=== PATIENT | female | born 1955 | race Caucasian/White ===

== ENCOUNTER → 2020-06-24 09:39 | Outpatient (BNVA) | payer OTHER, SELFPAY | PROVIDERS: Visit Provider Internal Medicine Gastroenterology | DX: Z76.89 Persons encountering health services in other specified circumstances (principal) ==

== ENCOUNTER 2020-06-24 16:50 | Outpatient (REF) | payer OTHER, SELFPAY ==
[2020-06-25 13:46] LABS: H Pylori Breath Test NOT DETECTED (NOT DETECTED)
== END 2020-06-24 16:51 | disposition home or self-care (01) ==
LOC: HO.LNP 16:50
PROVIDERS: Visit Provider Internal Medicine Gastroenterology
DX: Z11.0 Encounter for screening for intestinal infectious diseases (principal)
CPT/HCPCS: 83013

== ENCOUNTER 2020-08-19 01:44 | Emergency (ER) | payer OTHER, SELFPAY ==
[2020-08-19 01:58] VITALS: BP 141/66; PULSE 72; RESP 20; TEMP 37.1; O2SAT 95; BMI 44.9
--- NOTE | 2020-08-19 03:57 | XR_ITS ---
EXAMINATION: XR CHEST CLINICAL INFORMATION: Cough COMPARISON: 05/16/2020 TECHNIQUE: Frontal view of the chest was obtained. FINDINGS: Lung volumes are symmetric. There are mild patchy opacities along the periphery of the mid to lower lungs, right greater than left, which appear new from prior. No evidence of pneumothorax, pleural effusion, or overt pulmonary edema. Cardiac silhouette appears near the upper limits of normal in size. No acute osseous findings are seen. Degenerative changes are noted in the spine. XR/XR chest 1V IMPRESSION: Mild patchy peripheral opacities in the mid to lower lungs, right greater than left, concerning for developing consolidations in the proper clinical setting.
--- NOTE | 2020-08-19 03:59 | ED_ITS ---
HPI - General Adult General Chief complaint: Back Pain/Injury Stated complaint: UPPER BACK PAIN Time Seen by Provider: 08/19/20 03:57 Source: patient Mode of arrival: ambulatory Limitations: no limitations History of Present Illness HPI narrative: This is a 65-year-old female who presents with 2 days of dry cough without associated fevers, chills and she states that since the onset of the cough she has experienced some right posterior back discomfort. Patient states that she has a positive COVID-19 exposure via her daughter. But denies any sore throat chest pain/palpitations, shortness of breath, but she states that she has been having some mild nausea but denies any abdominal pain or diarrhea. Related Data Previous Rx's Medication Instructions Recorded doxycycline monohydrate 100 mg PO BID 7 Days #14 cap 08/19/20 Allergies Allergy/AdvReac Type Severity Reaction Status Date / Time No Known Allergies Allergy Verified 08/19/20 01:58 [No Known Allergies*] Review of Systems Review of Systems: Pertinent positives and negatives as stated in HPI 10 point review of systems is otherwise negative. PMFSH Past Medical History Source: nursing notes reviewed Medical History Asthma Hypothyroid Multiple sclerosis Social History Social History Advance Directives: No Advance Directives Information Provided: No Physical Exam Vital Signs: Vital Signs: Last Vital Signs Temp 98.7 F 08/19/20 01:58 Pulse 72 08/19/20 01:58 Resp 20 08/19/20 01:58 BP 141/66 H 08/19/20 01:58 Pulse Ox 95 08/19/20 01:58 Body Mass Index 44.9 VITAL SIGNS: Reviewed. GENERAL: Well developed, well nourished, in no acute distress. HEAD: Normocephalic/atraumatic, EYES: PERRLA, EOMI intact without pain, no nystagmus/pallor/icterus noted EARS: Ext canals without abnormality, TMs non-bulging and non-erythematous NOSE: Nares patent bilateral OROPHARYNX: no oral lesions noted, posterior pharynx clear and non-erythematous without noted tonsillar enlargement/erythema/exudates NECK: Supple, no adenopathy LUNGS: Normal breath sounds. No adventitious sounds or accessory muscle use. SpO2<95> CARDIOVASCULAR: Regular rate and rhythm without noted murmurs, no JVD or lower extremity edema. ABDOMEN: Soft, non-tender, non-distended with bowel sounds. No rigidity. No guarding. No palpable masses or hernias noted MUSCULOSKELETAL: No tenderness, deformities, or effusions noted on gross inspection. BACK: There is a noted muscle spasm in the right upper back just medial to the scapula EXTREMITIES: No cyanosis, clubbing or edema. SKIN: Inspection of the skin reveals no rashes, ulcerations, jaundice, pallor, or petechiae. NEUROLOGIC: Alert and oriented x 4. Strength and sensation to light touch were grossly intact x 4. Course Course Course Narrative: This is a 65-year-old female with history and clinical presentation consistent with likely musculoskeletal discomfort secondary to coughing, but due to patient's exposure to COVID-19 will test for that and obtain a chest x-ray and provide combination analgesics. She is not noted to be either hypoxic, tachypneic or febrile. On review of the chest x-ray it is being read as bilateral opacities right greater than left with concern for developing consolidation. Patient is neither febrile or tachypneic here and will be discharged on doxycycline as well as patient awaiting the results of her COVID-19 testing. She was informed of all results at the bedside and was discharged in stable condition. Discharge Plan Discharge Clinical Impression: Exposure to COVID-19 virus, Pneumonia Patient Disposition: Home, Self-Care Instructions: Pneumonia (ED), COVID-19 (Coronavirus Disease 2019) (ED) Additional Instructions: 1. reanude todos los medicamentos caseros seg?n lo prescrito. 2. Le lopez hecho pam prueba de COVID-19 bladimir esta visita y debe ponerse en cuarentena de acuerdo con las pautas del estado de [place] hasta que lo llamen con los resultados de la prueba de COVID-19. 3. adem?s, hubo cierta preocupaci?n por pam posible neumon?a y le lopez dado de maggy con los antibi?ticos adecuados. 4. debe hacer un seguimiento con scott proveedor de atenci?n primaria despu?s de que le hayan llamado los resultados de la prueba de COVID-19. Prescriptions: New doxycycline monohydrate 100 mg capsule 100 mg PO BID 7 Days Qty: 14 RF: 0 Referrals: Physician,None [Primary Care Provider] - 2 days Print Language: Rw[place]an
[2020-08-19] MEDS: Acetaminophen 325 MG TABLET 975 MG PO (05:06)
[2020-08-19] MEDS: Ketorolac Tromethamine 15 MG/ML VIAL IM (05:06)
[2020-08-19] MEDS: Lidocaine 4 % Patch ADH..PATCH 1 PATCH TRANSDERMA (05:06)
== END 2020-08-19 06:00 | disposition home or self-care (01) ==
PROVIDERS: Emergency Provider Student in an Organized Health Care Education/Training Program
DX: J18.9 Pneumonia, unspecified organism (principal); R05 Cough; Z20.828 Contact with and (suspected) exposure to other viral communicable diseases
CPT/HCPCS: 71045; 96372; 99283; 99284; J1885; U0003

== ENCOUNTER 2020-12-01 11:06 | Outpatient (REF) | payer OTHER, SELFPAY ==
[2020-12-01 13:25] LABS: MANUAL DIFF FLAG NO
[2020-12-01 13:35] LABS: Basophils Percent Auto 0.6 % (0-2); Eosinophils Absolute Auto 0.4 X10*3/uL (0.0-0.4); Eosinophils Percent Auto 6.3 % (0-4); Hematocrit 43.5 % (37-47); Hemoglobin 13.8 g/dl (12.0-16.0); Imm Gran Abs Auto 0.02 X10*3/uL (0.00-0.03); Imm Gran Pct Auto 0.3 % (0.0-0.4); Lymphocytes Absolute Auto 1.6 X10*3/uL (1.2-4.9); Lymphocytes Percent Auto 22.2 % (20-40); Mean Corpuscular HGB Conc 31.7 g/dl (31.0-35.0); Mean Corpuscular Hemoglobin 29.4 pg (27.0-33.0); Mean Corpuscular Volume 92.6 fL (80-98); Mean Platelet Volume 12.8 fL (9.4-12.3); Monocytes Absolute Auto 0.5 X10*3/uL (0.1-1.2); Monocytes Percent Auto 7.6 % (2-11); Neutrophils Absolute Auto 4.4 X10*3/uL (2.0-8.3); Platelet Count 247 X10*3/uL (160-400); Red Cell Distribution Width 13.5 % (11.0-16.0)
[2020-12-01 14:26] LABS: Alanine Aminotransferase 14 U/L (0-31); Albumin Level 4.5 g/dL (3.5-5.0); Alkaline Phosphatase 61 U/L (39-117); Anion Gap 12 (12-20); Aspartate Amino Transferase 18 U/L (5-31); Bilirubin Total 0.7 mg/dL (0.0-1.0); Blood Urea Nitrogen 15 mg/dL (9-16); Calcium 9.5 mg/dL (8.4-10.2); Carbon Dioxide 30 mmol/L (22-29); Chloride 105 mmol/L (96-108); Estimated Glomerular Filt Rate > 60; Glucose Random 95 mg/dL (60-115); Potassium 4.6 mmol/L (3.3-5.1); Sodium 142 mmol/L (135-145); Total Protein 7.5 g/dL (6.5-8.0)
[2020-12-01 14:27] LABS: Thyroid Stimulating Hormone 2.13 uIU/mL (0.32-4.0)
[2020-12-02 15:22] LABS: H Pylori Breath Test NOT DETECTED (NOT DETECTED)
== END 2020-12-01 11:07 | disposition home or self-care (01) ==
LOC: HO.LAB 11:06
PROVIDERS: Visit Provider Physician Assistant
DX: R10.13 Epigastric pain (principal); K21.9 Gastro-esophageal reflux disease without esophagitis; K59.09 Other constipation; R74.01 Elevation of levels of liver transaminase levels; R10.11 Right upper quadrant pain; Z86.16 Personal history of COVID-19
CPT/HCPCS: 36415; 80053; 83013; 84443; 85025; 99212

== ENCOUNTER 2021-01-18 12:50 | Outpatient (REF) | payer OTHER, SELFPAY | END 2021-01-18 12:51 | disposition home or self-care (01) | LOC: HO.LAB 12:50 | PROVIDERS: Visit Provider Internal Medicine | DX: Z20.822 Contact with and (suspected) exposure to COVID-19 (principal) | CPT/HCPCS: C9803; U0003; U0005 ==

== ENCOUNTER 2025-07-28 12:56 | Emergency (ER) | payer OTHER, SELFPAY ==
--- NOTE | ~2025-07-28 | CT_ITS ---
CLINICAL HISTORY: RUQ and epigastric abd pain CT of the abdomen and pelvis utilizing intravenous contrast. No comparison. Findings: The liver is unremarkable. Cholecystectomy. No hydronephrosis. The spleen and pancreas are unremarkable. No abdominal aortic aneurysm. There is diffuse colonic wall thickening consistent with colitis. There is no bowel obstruction. There is mild indeterminate bladder wall thickening. Hysterectomy. There are mild nonspecific interstitial opacities in the lower lungs that could represent mild fibrosis. 6 mm nodule left lower lung. Impression: Colonic wall thickening consistent with colitis. Indeterminate 6 mm nodule left lower lung recommend comparison to previous or follow-up. Mild bladder wall thickening likely incomplete distention although mild cystitis is a less likely possibility. This document has been electronically signed by: Jason Prado MD on 07/28/2025 17:49:34
[2025-07-28 13:23] VITALS: BP 159/71; PULSE 53; RESP 16; TEMP 36.4; O2SAT 98; BMI 43.2
--- NOTE | 2025-07-28 13:23 | ED_ITS ---
HPI - General Adult General Chief complaint: Abdominal Pain Stated complaint: Stomach Pain Time Seen by Provider: 07/28/25 16:02 History of Present Illness ED Provider: Dr. Steen HPI narrative: 70 y/o F patient; PMH chronic abdominal pain, GERD, chronic constipation, s/p cholecystectomy; presents from home reporting approx 2 weeks of right sided upper abdominal pain. A few episodes of non-bloody diarrhea. Otherwise denies: fever or chills, chest pain, SOB, cough/congestion. Related Data Previous Rx's ?Medication ?Instructions ?Recorded docusate sodium 100 mg capsule 200 mg (2 x 100 mg) PO BEDTIME #60 12/01/20 (Colace) caps omeprazole 20 mg capsule,delayed 20 mg PO DAILY #30 ca ps 12/01/20 release polyethylene glycol 3350 17 gram 17 g PO DAILY #30 ea 12/01/20 oral powder packet (Miralax) famotidine 40 mg tablet 40 mg PO BEDTIME 30 days #30 tabs 07/28/25 Allergies Allergy/AdvReac Type Severity Reaction Status Date / Time No Known Allergies (No Known Allergy Verified 07/28/25 13:25 Allergies*) Review of Systems 2 Review of Systems: Yes all other systems are reviewed and are negative PMFSH Past Medical History Attestation statement: The following information was validated with the patient. Source: old records reviewed Medical History Chronic constipation Hypothyroid Asthma Multiple sclerosis Surgical History H/O: hysterectomy History of cholecystectomy Social History Social History Household Members: Spouse and Children Alcohol intake: current Alcohol intake frequency: holidays/special occasions only Alcohol type: hard liquor Smoked in Last 30 Days: No Use of substances other than those prescribed or required for medical reasons: No Advance Directives: No Advance Directives Information Provided: No Do you have a plan to hurt others: No Plan Current occupational status: disabled Physical Exam ED Vital Signs: Vital Signs - 24 hr 07/28/25 13:23 07/28/25 16:55 Temperature 97.5 F 97.8 F Pulse Rate 53 58 Respiratory Rate 16 16 Blood Pressure 159/71 H 147/88 H Pulse Oximetry 98 98 Oxygen Delivery Method Room Air Room Air BMI result Body Mass Index 43.2 Patient is afebrile and hemodynamically stable. Const General: cooperative and no acute distress Orientation/consciousness: patient oriented x3 HENMT Head: Yes normal to inspection and Yes atraumatic Eyes General: appearance normal, both eyes and all related structures Pupils: Equal, round and reactive pupils present EOM: EOMs intact bilaterally Neck Neck: Yes normal visual inspection, Yes supple and No tender Chest Chest palpation & inspection: normal inspection of the chest and normal palpation of entire chest wall Resp Effort & Inspection: normal respiratory effort, able to speak in complete sentences and no cough Auscultation: clear to auscultation bilaterally Cardio Rate: regular rate Rhythm: regular rhythm Peripheral pulses: Peripheral pulses 2+ throughout GI Inspection: Yes normal to inspection, No Abdominal wall edema and No distended Palpation (GI): Soft to palpation, not firm, nontender, no guarding and not rigid Auscultation: normal bowel sounds Back/Spine/Pelvis Back: No back tenderness Neuro General: patient oriented x3 Cranial nerves: Yes Equal, round and reactive pupils present Course Course Course Narrative: Rapid medical examination performed in triage by Scarlet Patel PA-C: Patient is a 70 year old assigned female at presenting to the emergency department with abdominal pain. Detailed physical exam and review of systems are deferred to the industrial engineering. Labs ordered. Patient placed back in the waiting room pending room availability and results. Reevaluation(s) Reevaluation #1: Patient is afebrile and hemodynamically stable. Reviewed triage ordered labs. No significant leukocytosis. No significant anemia. Lipase is negative. Transaminitis is negative. Will obtain CT Abdomen/Pelvis. Will provide protonix and GI cocktail. CT Abdomen/Pelvis is unremarkable for acute abnormalities. Will provide GI out-patient follow up. Plan: Discharge to home Condition: Stable Rx famotidine sent to pharmacy Medications Administered Discontinued Medications Generic Name Dose Route Start Last Admin Trade Name Freq PRN Reason Stop Dose Admin Al Hydroxide/Mg Hydroxide 30 ml 07/28/25 16:34 07/28/25 17:40 Magnesium Hydrox/Alum Hydrox 30 Ml Oral.Susp PO 07/28/25 16:35 30 ml ONCE ONE Administration Belladonna Alkaloids/Phenobarbital 10 ml 07/28/25 16:34 07/28/25 17:40 Phenobarb/Hyoscy/Atropine/Scop 10 Ml Elixir PO 07/28/25 16:35 10 ml ONCE ONE Administration Iohexol 100 ml 07/28/25 17:20 07/28/25 17:20 Iohexol 350 Mg/Ml 100 Ml Infus..Btl IV 07/28/25 17:21 85 ml ONCE ONE Administration Pantoprazole Sodium 40 mg 07/28/25 16:34 07/28/25 17:40 Pantoprazole Sodium 40 Mg/10 Ml Vial IVPUSH 07/28/25 16:35 40 mg ONCE ONE Administration Medical Decision Making Lab Data 07/28/25 13:34 07/28/25 13:34 Labs: Lab Results 07/28/25 07/28/25 Range/Units 13:34 17:02 WBC 6.0 (4.8-10.8) X10*3/uL RBC 4.64 (4.20-5.50) X10*6/uL Hgb 13.5 (12.0-16.0) g/dl Hct 41.5 (37.0-47.0) % MCV 89.4 (80.0-98.0) fL MCH 29.1 (27.0-33.0) pg MCHC 32.5 (31.0-35.0) g/dl RDW 13.3 (11.0-16.0) % Plt Count 214 (160-400) X10*3/uL MPV 12.6 H (9.4-12.3) fL Immature Gran % (Auto) 0.3 (0.0-0.4) % Neut % (Auto) 58.1 (45-73) % Lymph % (Auto) 20.8 (20-40) % Mitchell % (Auto) 7.8 (2-11) % Eos % (Auto) 12.3 H (0-4) % Baso % (Auto) 0.7 (0-2) % Lymph # (Auto) 1.3 (1.2-4.9) X10*3/uL Mitchell # (Auto) 0.5 (0.1-1.2) X10*3/uL Eos # (Auto) 0.7 H (0.0-0.4) X10*3/uL Baso # (Auto) 0.0 (0.0-0.2) X10*3/uL Abs Immat Gran (auto) 0.02 (0.00-0.03) X10*3/uL Absolute Neuts (auto) 3.5 (2.0-8.3) x10*3/uL Absolute Nucleated RBC 0.000 (0.0-0.012) X10*3/uL Nucleated RBC % (auto) 0.0 (0.0-0.2) /100WBC Sodium 143 (135-145) mmol/L Potassium 4.3 (3.3-5.1) mmol/L Chloride 111 H (96-108) mmol/L Carbon Dioxide 26 (22-29) mmol/L Anion Gap 10 L (12-20) BUN 9 (9-16) mg/dL Creatinine 0.84 (0.5-1.4) mg/dL Estim Creat Clear Calc 81.2 Estimated GFR > 60 Random Glucose 94 (60-115) mg/dL Calcium 9.5 (8.4-10.2) mg/dL Magnesium 2.3 (1.6-2.6) mg/dL Total Bilirubin 0.6 (0.0-1.0) mg/dL AST 21 (5-31) U/L ALT 15 (0-31) U/L Alkaline Phosphatase 76 (39-117) U/L Total Protein 7.4 (6.5-8.0) g/dL Albumin 4.4 (3.5-5.0) g/dL Lipase 14 (8-78) U/L Urine Color Yellow Urine Appearance Clear Urine pH 6.5 (5.0-9.0) Ur Specific Carman 1.015 (1.005-1.025) Urine Protein Negative (Neg-Trace) mg/dL Urine Glucose (UA) Negative (Negative) mg/dL Urine Ketones Trace (Negative) mg/dL Urine Blood Negative (Negative) Urine Nitrite Negative (Negative) Ur Leukocyte Esterase Trace H (Negative) Urine RBC 0-2 (0-2) /HPF Urine WBC 0-5 (0-5) /HPF Ur Squamous Epith Cells 0-2 (0-2) /HPF Urine Bacteria None Seen (None Seen) Hyaline Casts 0-2 (0-2) /LPF Radiology Impression Discussion of test interpretation with radiology: I have reviewed the radiologist's reading. Radiologist Impression: CLINICAL HISTORY: RUQ and epigastric abd pain CT of the abdomen and pelvis utilizing intravenous contrast. No comparison. Findings: The liver is unremarkable. Cholecystectomy. No hydronephrosis. The spleen and pancreas are unremarkable. No abdominal aortic aneurysm. There is diffuse colonic wall thickening consistent with colitis. There is no bowel obstruction. There is mild indeterminate bladder wall thickening. Hysterectomy. There are mild nonspecific interstitial opacities in the lower lungs that could represent mild fibrosis. 6 mm nodule left lower lung. Impression: Colonic wall thickening consistent with colitis. Indeterminate 6 mm nodule left lower lung recommend comparison to previous or follow-up. Mild bladder wall thickening likely incomplete distention although mild cystitis is a less likely possibility. This document has been electronically signed by: Jason Prado MD on 07/28/2025 17:49:34 Discharge Plan Discharge Clinical Impression: Abdominal pain Patient Disposition: Home, Self-Care Instructions: GERD (Gastroesophageal Reflux Disease) (DC), Abdominal Pain (ED) Prescriptions: New famotidine 40 mg tablet 40 mg PO BEDTIME 30 Days Qty: 30 0RF No Action docusate sodium [Colace] 100 mg capsule 200 mg PO BEDTIME Qty: 60 5RF polyethylene glycol 3350 [Miralax] 17 gram powder in packet 17 g PO DAILY Qty: 30 5RF omeprazole 20 mg capsule,delayed release(DR/EC) 20 mg PO DAILY Qty: 30 5RF Referrals: Leif Donis MD [Physician, Gastroenterology] Referral Note: Please call to make an appointment with GI. Print Language: [place] Islander
[2025-07-28 13:39] LABS: MANUAL DIFF FLAG NO
[2025-07-28 13:52] LABS: Hematocrit 41.5 % (37.0-47.0); Hemoglobin 13.5 g/dl (12.0-16.0); Imm Gran Abs Auto 0.02 X10*3/uL (0.00-0.03); Imm Gran Pct Auto 0.3 % (0.0-0.4); Lymphocytes Absolute Auto 1.3 X10*3/uL (1.2-4.9); Mean Corpuscular HGB Conc 32.5 g/dl (31.0-35.0); Mean Corpuscular Hemoglobin 29.1 pg (27.0-33.0); Mean Corpuscular Volume 89.4 fL (80.0-98.0); NRBC Abs Auto 0.000 X10*3/uL (0.0-0.012); NRBC Pct Auto 0.0 /100WBC (0.0-0.2); Platelet Count 214 X10*3/uL (160-400); Red Blood Count 4.64 X10*6/uL (4.20-5.50); White Blood Count 6.0 X10*3/uL (4.8-10.8)
[2025-07-28 14:00] LABS: Alanine Aminotransferase 15 U/L (0-31); Albumin Level 4.4 g/dL (3.5-5.0); Alkaline Phosphatase 76 U/L (39-117); Anion Gap 10 (12-20); Aspartate Amino Transferase 21 U/L (5-31); Blood Urea Nitrogen 9 mg/dL (9-16); Calcium 9.5 mg/dL (8.4-10.2); Carbon Dioxide 26 mmol/L (22-29); Chloride 111 mmol/L (96-108); Creatinine Clr Calc Pharmacy 81.2; Estimated Glomerular Filt Rate > 60; Magnesium 2.3 mg/dL (1.6-2.6); Potassium 4.3 mmol/L (3.3-5.1); Sodium 143 mmol/L (135-145); Total Protein 7.4 g/dL (6.5-8.0)
[2025-07-28 16:30] LABS: Lipase 14 U/L (8-78)
[2025-07-28 16:55] VITALS: BP 147/88; PULSE 58; RESP 16; TEMP 36.6; O2SAT 98
[2025-07-28 17:15] LABS: Appearance Urine Clear; Glucose Urine UA Negative (Negative); PH 6.5 (5.0-9.0); Specific Gravity - Urine 1.015 (1.005-1.025); UMIC TRIGGER UACC YES
[2025-07-28] MEDS: iohexoL 350 MG/ML 100 ML INFUS..BTL IV (17:20)
[2025-07-28] MEDS: PHENobarb/Hyoscy/Atropine/Scop 10 ML ELIXIR PO (17:40)
[2025-07-28] MEDS: Magnesium Hydrox/Alum Hydrox 30 ML ORAL.SUSP PO (17:40)
--- OUTSIDE RECORDS SUMMARY | 2025-07-28 17:53 | XMS_ITS | Encounter Summary ---
Author Organization [facility] Address [address] [place] [address] Phone Care Team Providers Care Windows Security Analyst Name Role Phone Unknown, Unknown Primary Care Provider Denise Varela MD Unavailable Encounter Details Date Type Department Care Team (Late st Contact Info) Description 08/19/2023 Procedure Pass [facility] [address], [place] [address] [facility], [address] [place] [address] Social History Tobacco Use Types Packs/Day Years Used Date Smoking Tobacco: Never Smokeless Tobacco: Never Alcohol Use Standard Drinks/Week Comments Never 0 (1 standard drink = 0.6 oz pur e alcohol) Education Answer Date Recorded Are you interested in more education? Not on shanae e 08/19/2023 Are you concerned about learning? Not on file 08/19/2023 No 08/19/2023 No 08/19/2023 Digital Access Answer Date Recorded No 08/19/2023 No 08/19/2023 Reliable internet access at home? Not on file 08/19/2023 Device with a working camera? Not on file Comments Unknown Sex and Gender Information Value Date Recorded Sex Assigned at Not on file Legal Sex Female 6:21 PM EST Gender Identity Not on file Sexual Orientation Not on file documented as of this encounter Plan of Treatment Not on file documented as of this encounter Visit Diagnoses Not on filedocumented in this encounter Care Teams Windows Security Analyst Relationship Specialty Start Date End Date Unknown, Unknown, PCP - General 08/18/23 Denise Torres MD [address] [place] [id number] 08/18/23 documented as of this encounter Additional Source Comments The information contained in this document represents components of the legal health record. It is not the complete legal health record.[facility]
--- OUTSIDE RECORDS SUMMARY | 2025-07-28 17:53 | XMS_ITS | Clinical Summary ---
Author Organization [facility] Address [address] [place] [id number] Phone Care Team Providers Care Major Assembler Name Role Phone Unknown, Unknown Primary Care Provider Denise Varela MD Unavailable Allergies No known active allergies Medications No known medications Social History Tobacco Use Types Packs/Day Years Used Date Smoking Tobacco: Never Smokeless Tobacco: Never Tobacco Cessation:Counseling Given: Not Answered Alcohol Use Standard Drinks/Week Comments Never 0 [...] on file Sexual Orientation Not on file Last Filed Vital Signs Vital Sign Reading Time Taken Comments Blood Pressure 141/99 08/19/2023 7:38 PM EST Pulse 59 08/19/2023 7:38 PM EST Temperature 35.8 C (96.5 F) 08/19/2023 6:15 PM EST Respiratory Rate 16 08/19/2023 7:38 PM EST Oxygen Saturation 100% 08/19/2023 7:38 PM EST Inhaled Oxygen Concentration - - Weight - - Height - - Body Mass Index - - Plan of Treatment Health Maintenance Due Date Last Done Comments DEPRESSION SCREENING 1968 MAMMOGRAM 1996 COLOGUARD 2001 COLONOSCOPY 2001 COLORECTAL CANCER SCREENING 2001 FIT TEST 2001 FOBT 2001 SIGMOIDOSCOPY 2001 VIRTUAL COLONOSCOPY 2001 PNEUMOCOCCAL VACCINES (50+ years) (2 of 2 - PCV20 or PCV21) 10/18/2018 10/18/2017 OSTEOPOROSIS SCREENING INITI AL (ONE-TIME) 2021 INFLUENZA VACCINE (#1) 2025 , 10/18/2017 COVID-19 VACCINE (4 - 2024-2 6 season) 2025 11/18/2021, 04/07/2021, 02/28/2021 LIPID PANEL 06/23/2027 06/23/2022, 06/23/2022, 08/22/2018 Adult Td,Tdap Booster 04/04/2029 04/04/2019 RSV VACCINE (1 - 1-dose 75+ series) 2031 HEPATITIS C SCREENING Completed 10/09/2020 ZOSTER VACCINES Completed 06/16/2022, 05/13/2021 SMOKING STATUS SCREENING (On ce After 26 Yrs) Completed 08/25/2023 HEPATITIS A VACCINES Aged Out No long er eligible based on patient's age to complete this topic HIB VACCINES Aged Out No longer eligi ble based on patient's age to complete this topic IPV VACCINES Aged Out No longer eligi ble based on patient's age to complete this topic MENINGOCOCCAL VACCINES (ACWY) Aged Out No longer eligible based on patient's age to complete this topic MENINGOCOCCAL VACCINES (B) Aged Out N o longer eligible based on patient's age to complete this topic Medical Devices Not on file Insurance [place] [id number] [place] [id number] [place]IC[place] MEDICARE PART A & B [employer] MEDICARE PART A & B [place] Care Teams Major Assembler Relationship Specialty Start Date End Date Unknown, Unknown, MD PCP - General 08/18/23 Denise Torres MD [address] [place] [phone] 08/18/23 Additional Source Comments The information contained in this document represents components of the legal health record. It is not the complete legal health record.[facility]
--- OUTSIDE RECORDS SUMMARY | 2025-07-28 17:53 | XMS_ITS ---
Author Organization [facility] Address [address] [place] [address] Care Team Providers Care Heating And Ventilation Engineer Name Role Phone Maribel Han PA-C Primary Care Provider [phone] Asthma Program Status:Enrolled (Active) Start date:03/01/2024 Enrollment date:03/01/2024 Case Team Name Relationship Phone Mike Dubon PharmD(Responsible S taff) [phone] Continued Care and Services Coordination
--- OUTSIDE RECORDS SUMMARY | 2025-07-28 17:53 | XMS_ITS | Clinical Summary ---
Author Organization [address] [facility] Address [address] [place] [address] Phone Care Team Providers Care [employer] Name Role Phone Jg Han Primary Care Provider [phone] Allergies No known active allergies Medications bisacodyL (DULCOLAX) 5 mg EC tablet Take 2 tabs by mouth right before beginning bowel prep. Follow instructions given by office for timing. 4 Active apixaban (Eliquis) 5 mg tablet Take 1 tablet (5 mg total) by mouth 2 (two) times a day. 4 Active levothyroxine (SYNTHROID, LEVOTHROID) 150 mcg tablet Take 1 tablet (150 mcg total) by mouth 1 (one) time each day. 7 Active albuterol HFA (PROAIR HFA ; PROVENTIL HFA ; VENTOLIN HFA) 90 mcg/actuation inhaler Inhale 1 Puff into the lungs every 4 hours as needed for Cough or Wheezing. 7 Active fluticasone HFA (FLOVENT HFA) 110 mcg/actuation inhaler Inhale 1 Puff into the lungs 2 times daily. 7 Active omeprazole (PriLOSEC) [address] capsule Take 1 Cap by mouth daily for 28 days. No refills 7 Active fluticasone furoate (Arnuity Ellipta) 100 mcg/actuation blister with device inhaler Inhale 1 puff by mouth 1 (one) time each day. Active Active Problems Problem Noted Date Diagnosed Date Hypothyroidism 07/15/2016 Acute pain of left shoulder 06/28/2016 Moderate persistent asthma 06/28/2016 NAFLD (nonalcoholic fatty liver disease) 016 Encounters Date Type Department Care Team Description 06/19/2025 10:09 AM EDT - 06/19/2025 11:59 PM EDT [facility] [address] [id number] Encounter for screening mammogram for malignant neoplasm of breast Discharge Disposition: Home or Self Care from Last 3 Months Immunizations Immunization Administration Dates Next Due Influenza Quadravalent, MDCK , 0.5ml, with preservative (Flucelvax) 6mo and older 06/22/2017 Surgical History Surgery Date Site/Laterality Comments PARTIAL HYSTERECTOMY PROCEDURE: NH SUPRACERVICAL ABDL HYSTER W/WO RMVL TUBE OVARY OOPHORECTOMY PROCEDURE: HISTORICAL OOPHORECTOMY; COMMENT: doesnt remember which one CHOLECYSTECTOMY PROCEDURE: HISTORICAL CHOLECYSTECTOMY KNEE SURGERY PROCEDURE: HISTORICAL KNEE SURGERY; COMMENT: x2 on left ESOPHAGOGASTRODUODENOSCOPY 03/09/16 PROCEDURE: NH ESOPHAGOGASTRODUODENOSCOPY TRANSORAL DIAGNOSTIC; COMMENT: normal; MADELINE test neg COLONOSCOPY 04/16/16 PROCEDURE: HISTORICAL COLONOSCOPY; COMMENT: adenomas and lipomas; repeat in 3 yrs under propofol Medical History Medical History Date Comments Asthma DX:Asthma Thyroid disease DX:Thyroid disea se NAFLD (nonalcoholic fatty li glenn disease) 01/25/2016 DX:NAFLD (nonalcoholic fatty liver disease) Family history of gastric cancer DX:Family history of gastric cancer Family history of colon cancer D X:Family history of colon cancer Fatty liver DX:Fatty liver Tubular adenoma of colon DX:Tubu lar adenoma of colon Family History Medical History Relation Name Comments Other: Pancreatic cancer Father Thyroid disease Mother Colon cancer Sister also with gastr ic cancer in her early 50's Breast cancer Neg Hx Relation Name Status Comments Father Mother Sister Social History Tobacco Use Types Packs/Day Years Used Date Smoking Tobacco: Never Smokeless Tobacco: Never Alcohol Use Standard Drinks/Week Comments Yes 0 (1 standard drink = 0.6 oz pur e alcohol) Comments No Sex and Gender Information Value Date Recorded Sex Assigned at Female 11/27/2024 7:31 AM EDT Legal Sex Female 11:27 PM EST Gender Identity Female 11/27/2024 7:31 AM EDT Sexual Orientation Choose not to disclose 2024 7:31 AM EDT Obstetrics History Para Term AB IAB SAB Ectopic Multiple Livin g Live Births 4 Last Filed Vital Signs Vital Sign Reading Time Taken Comments Blood Pressure 130/82 09/26/2024 2:20 PM EST Pulse 75 09/26/2024 2:20 PM EST Temperature - - Respiratory Rate - - Oxygen Saturation - - Inhaled Oxygen Concentration - - Weight 124 kg (273 lb) 06/19/2025 10:19 AM EDT Height 165.1 cm (5' 5 ) 06/19/2025 10:19 AM EDT Body Mass Index 45.43 06/19/2025 10:19 AM EDT Plan of Treatment Health Maintenance Due Date Last Done Comments Hepatitis A Vaccines (1 of 2 - Risk 2-dose series) 1975 RSV Immunization Adult Patients (1 - Risk 50-74 years 1-dose series) 2006 Hepatitis B Vaccines (1 of 3 - Risk 3-dose series) 2016 Falls Risk Assessment 08/21/2022 Medicare Annual Wellness Visit 08/21/2022 Social Influencers of Health Screening 08/21/2022 Depression Screening 09/18/2024 COVID-19 Vaccine ( season) 2025 11/18/2021, 04/07/2021, 02/28/2021 Influenza Vaccine (#1) 2025 , 06/16/2022, 10/18/2017, Additional history exists Breast Cancer Screening 06/19/2027 06/19/20 25, 11/23/2023, 07/15/2021 Colorectal Cancer Screening: Colonoscopy 01/22/2029 01/23/2024 DTaP,Tdap,and Td Vaccines (2 - Td or Tdap) 04/04/2029 04/04/2019 Cholesterol Screening (Lipid Panel) 11/26/2029 11/26/2024, 06/23/2022, 06/23/2022, Additional history exists Osteoporosis Screening (Bone Density Screening) 11/23/2033 11/24/2023 Hepatitis C Screening Completed 10/09/2020 , 10/09/2020, 10/09/2020 Zoster Vaccines Completed 06/16/2022, 05/13/2021 Pneumococcal Vaccine: 50+ Years Completed 02/28/2024, 10/18/2017 HIB Vaccines Aged Out No longer eligi ble based on patient's age to complete this topic HPV Vaccines Aged Out No longer eligi ble based on patient's age to complete this topic IPV Vaccines Aged Out No longer eligi ble based on patient's age to complete this topic MMR Vaccines Aged Out No longer eligi ble based on patient's age to complete this topic Meningococcal ACWY Vaccine Aged Out N o longer eligible based on patient's age to complete this topic Meningococcal B Vaccine Aged Out No l onger eligible based on patient's age to complete this topic RSV Immunization Patients Under 20 months Aged Out No longer eligible based on patient's age to complete this topic Varicella Vaccines Aged Out No longer eligible based on patient's age to complete this topic Procedures Procedure Name Priority Date/Time Associated Diagnosis Comments MG MAMMO DIGITAL SCREENING W JOSE MANUEL BILAT Routine 06/19/2025 10:29 AM EDT Encounter for screening mammogram for malignant neoplasm of breast LIPID PANEL WITH REFLEX TO DIRECT LDL Routine 11/26/2024 2:35 PM EDT Fatty liver Dyspepsia COLONOSCOPY Routine 01/23/2024 [facility] DEXA AXIAL SKELETON Routine 11/24/2023 9:10 AM EST Encounter for screening for osteoporosis HEPATITIS C SCREENING Routine 10/09/2020 from Last 3 Months or Most Recently Relevant to Health Maintenance Results * MG Mammo Digital Screening w Jose Manuel bilat (06/19/2025 10:29 AM EDT) Anatomical Region Laterality Modality Breast Bilateral Mammography 06/19/2025 11:4 1 AM EDT Impressions 06/19/2025 11:52 AM EDT No mammographic evidence of malignancy. No suspicious interval change. A negative mammogram in the presence of a clinically suspicious palpable abnormality does not preclude the possibility of malignancy or alter the indications for biopsy. ASSESSMENT: BI-RADS 1: NEGATIVE RECOMMENDATION(S): 1: Routine screening mammogram BILATERAL in 1 year. [facility] location[facility] at [address], [address] -------- FINAL REPORT -------- Dictated By: Ramon Cleveland Dictated Date: 06/19/2025 11:41 ET Assigned Physician: Ramon Cleveland Reviewed and Electronically Signed By: Ramon Cleveland Signed Date: 06/19/2025 11:52 ET Workstation ID: [id number] Transcribed By: Self Edit Transcribed Date: 06/19/2025 11:41 ET Narrative 06/19/2025 11:52 AM EDT EXAM: SCREENING MAMMOGRAPHY, BILATERAL HISTORY: SCREENING. No additional history. COMPARISON: 11/23/23, 07/15/21 TECHNIQUE: Synthesized CC and MLO projections of each breast. Tomosynthesis of each breast in the CC and MLO projections. ADDITIONAL IMAGING: Craniocaudal view of each breast exaggerated toward the axilla using Tomosynthesis. Computer-aided detection was employed with the [employer] AI 3-D. TISSUE DENSITY: There are scattered areas of fibroglandular density. (BI-RADS category B) FINDINGS: RIGHT BREAST: No suspicious mass. No suspicious calcification. No distortion. No additional suspicious right breast findings LEFT BREAST: No suspicious mass. No suspicious calcification. No distortion. No additional suspicious left breast findings Procedure Note Ramon Cleveland MD - 06/19/2025 EXAM: SCREENING MAMMOGRAPHY, BILATERAL HISTORY: SCREENING. No additional history. COMPARISON: 11/23/23, 07/15/21 TECHNIQUE: Synthesized CC and MLO projections of each breast.Tomosynthesis of each breast in the CC and MLO projections. ADDITIONAL IMAGING: Craniocaudal view of each breast exaggerated towardthe axilla using Tomosynthesis. Computer-aided detection was employed with the [employer] AI 3-D. TISSUE DENSITY: There are scattered areas of fibroglandular density.(BI-RADS category B) FINDINGS: RIGHT BREAST: No suspicious mass. No suspicious calcification. No distortion. Noadditional suspicious right breast findings LEFT BREAST: No suspicious mass. No suspicious calcification. No distortion. Noadditional suspicious left breast findings IMPRESSION: No mammographic evidence of malignancy. No suspicious interval change. A negative mammogram in the presence of a clinically suspicious palpableabnormality does not preclude the possibility of malignancy or alter theindications for biopsy. ASSESSMENT: BI-RADS 1: NEGATIVE RECOMMENDATION(S): 1: Routine screening mammogram BILATERAL in 1 year. [facility] location[facility] at [address], [address] -------- FINAL REPORT -------- Dictated By: Ramon Cleveland Dictated Date: 06/19/2025 11:41 ET Assigned Physician: Ramon Cleveland Reviewed and Electronically Signed By: Ramon Cleveland Signed Date: 06/19/2025 11:52 ET Workstation ID: [id number] Transcribed By: Self Edit Transcribed Date: 06/19/2025 11:41 ET Jg ARREAGA IMG BI PROCEDURES Final Result * (ABNORMAL) Lipid panel with reflex to direct LDL (11/26/2024 2:35 PM EDT) Cholesterol 176 0 - 200 mg/dL LAB CHEMISTRY METHOD 11/26/2024 5:[address] [facility] Triglycerides 105 0 - 150 mg/dL LAB CHEMISTRY METHOD 11/26/2024 5:[address] [facility] HDL 48 >=40 mg/dL LAB CHEMISTRY METHOD 11/26/2024 5:[address] [facility] LDL Calculated 107(H) 0 - 100 mg/dL LAB CHEMISTRY METHOD 11/26/2024 5:[address] [facility] VLDL Cholesterol Jorden 21 mg/dL LAB CHEMISTRY METHOD 11/26/2024 5:[address] [facility] Non HDL Chol. (LDL+VLDL) 128 <145 mg/dL LAB CHEMISTRY METHOD 11/26/2024 5:[address] [facility] Chol/HDL Ratio 3.7 0.0 - 4.4 LAB CHEMISTRY METHOD 11/26/2024 5:[address] [facility] Blood Venous blood specimen / Unknown Venipuncture / Unknown 11/26/2024 2:35 PM EDT 11/26/2024 4:15 PM EDT us [place] [facility] LAB BLOOD ORDERABLES Final Resu lt [facility] [address] [place] [address], [place] [phone] * Colonoscopy (01/23/2024) Colonoscopy no interpretation , abstracted Anatomical Region Laterality Modality Other Historical Provider MD HEALTH MAINTENANCE Final Result * [facility] DEXA AXIAL SKELETON (11/24/2023 9:10 AM EST) Anatomical Region Laterality Modality Mammography 11/23/2023 1:28 PM EST Narrative 11/24/2023 9:10 AM EST [facility] Diagnostic Imaging Department [address] [place] [address] Patient: YECENIA RESTREPO/Age/Sex: 1955 - 68 - F Unit#: [id number] Location/Status: SPDIMAM/REG CLI Mnemonic[facility] Ordering Physician: JG HAN PA-C [facility] Dexa Axial Skeleton - 11/23/23 - Report Status:Signed History: Low estrogen state due to menopause. Chronic glucocorticoid use. Personal history of fracture. Findings: Bone densitometry is performed utilizing dual energy x-ray absorptiometry (DXA) in the [employer] unit. The lumbar spine and proximal femora are evaluated in the AP projection. The FRAX questionaire was completed. The results indicate low bone mass (osteopenia), with bilateral femoral neck T- scores of -1.7. The Z score is -1.2, indicating low bone mineral density for age. The detailed DEXA report will be mailed to the referring physician's office. DualFemur FRAX: 10-year Probability of Fracture: Major Osteoporotic 12.4 percent Hip 1.7 percent. IMPRESSION: Osteopenia. [id number] Dictating Physician: LIV MIX MD Electronically Signed by: LIV MIX MD Dic Date/Time: 11/24/23908 Sign date/Time: 11/24/23909 Procedure Note Liv Mix MD - 05/06/2024 [facility] Diagnostic Imaging Department [address] [place] [address] Patient: YECENIA RESTREPO/Age/Sex: 1955 - 68 - F Unit#: [id number] Location/Status: SPDIMA/REG CLI Mnemonic/[facility] Ordering Physician: JG HAN PA-C [facility] Dexa Axial Skeleton - 11/23/23 - Report Status:Signed History: Low estrogen state due to menopause. Chronic glucocorticoiduse. Personal history of fracture. Findings: Bone densitometry is performed utilizing dual energy x-ray absorptiometry(DXA) in the [employer] unit. The lumbar spine and proximal femora areevaluated in the AP projection. The FRAX questionaire was completed. The results indicate low bone mass (osteopenia), with bilateral femoralneck T- scores of -1.7. The Z score is -1.2, indicating low bone mineral densityfor age. The detailed DEXA report will be mailed to the referringphysician's office. [employer]Femur FRAX: 10-year Probability of Fracture: Major Osteoporotic 12.4 percent Hip 1.7 percent. IMPRESSION: Osteopenia. [id number] Dictating Physician: LIV MIX MD Electronically Signed by: LIV MIX MD Dic Date/Time: 11/24/23908 Sign date/Time: 11/24/23909 Jg ARREAGA IMG BI PROCEDURES Final Result * Hepatitis C Screening (10/09/2020) Hepatitis C Screening abstracted Historical Provider HEALTH MAINTENANCE Final Result from Last 3 Months or Most Recently Relevant to Health Maintenance Insurance [facility] MEDICARE Member Subscriber Plan / Payer (Ef fective 2023-Present) Name:Yecenia Restrepo Relation to Subscriber:Self Name:Yecenia Restrepo Payer ID:[id number] Group ID:[id number] Type:Not on file Address: [place] [address] [address] [address] Care Teams [employer] Relationship Specialty Start Date End Date Jg Han PA [facility] [place] [address] [facility] - General 06/17/22
--- OUTSIDE RECORDS SUMMARY | 2025-07-28 17:54 | XMS_ITS | Clinical Summary ---
Author Organization [facility] Address [address] [place] [address] Care Team Providers Care Professor Of Finance Name Role Phone Maribel Han PA-C Primary Care Provider + [phone] Source Comments PLEASE NOTE, if this patient is a minor, it may be UNLAWFUL to discuss sensitive information that is contained in these records (such as FAMILY PLANNING, MENTAL HEALTH or SUBSTANCE ABUSE) with the minor patient's parent or other person without the patient's specific authorization.[facility] Allergies No known active allergies Medications loratadine (CLARITIN) 10 mg tabletIndicatio ns:Seasonal allergies [place] 1 tableta por via oral diariamente seth necesario para las alergias (Sustituido por Claritin) 30 Tablet 1 03/09/20 22 Active calcium carbonate-vitam in D3 500 mg-10 mcg (400 unit) chewIndications :Osteopenia, unspecified location Chew and swallow 1 Tablet by mouth 2 (two) times daily 180 Tablet 1 12/11/19 24 Active alendronate (FOSAMAX) 35 mg tabletIndicatio ns:Osteopenia, unspecified location Take 1 Tablet by mouth every 7 (seven) days 12 Tablet 1 12/11/19 24 Active melatonin 10 mg tabIndications: Trouble in sleeping Take 1 Tablet by mouth nightly at bedtime 90 Tablet 12/13/19 24 Active melatonin-lemon balm leaf extr 10-1 mg tab TAKE 1 TABLET BY MOUTH EVERY NIGHT AT BEDTIME 90 Tablet 1 12/13/19 24 Active albuterol HFA 90 mcg/actuation inhalerIndicati ons:Moderate persistent asthma without complication Inhalar pam bocanada por la boca en los pulmones cada 4 horas seth necesario para dificultad para respirar o sibilancias (Sustituido por Pro 18 g 1 02/21/20 24 Active albuterol (PROVENTIL) 2.5 mg /3 mL (0.083 %) nebulizer solutionIndicat ions:Moderate persistent asthma without complication Take 3 mL by nebulization every 6 (six) hours as needed for wheezing 75 mL 2 02/21/20 24 Active pantoprazole (PROTONIX) 40 mg EC tablet Take 40 mg by mouth once daily 02/03/20 24 Active sucralfate (CARAFATE) 1 gram tablet 11/27/19 24 Active fluticasone furoate (ARNUITY ELLIPTA) 100 mcg/actuation dsdvIndications :Moderate persistent asthma without complication Inhale 1 Puff into the lungs once daily 30 Each 03/07/20 24 Active hydrOXYzine HCL (ATARAX) 25 mg tabletIndicatio ns:Trouble in sleeping,Anxiet y TAKE 1 TABLET BY MOUTH EVERY NIGHT AT BEDTIME NEEDED FOR ANXIETY OR SLEEP 90 Tablet 03/12/20 24 Active nebulizer accessoriesIndi cations:Moderat e persistent asthma without complication Use as needed for asthma exacerbation if albuterol pump does not alleviate symptoms 3-4 times per day 1 Each 03/12/20 24 Active nebulizer and compressorIndic ations:Moderate persistent asthma without complication Use as needed for asthma exacerbation if albuterol pump does not alleviate symptoms 3-4 times per day 1 Each 03/12/20 24 Active albuterol HFA 90 mcg/actuation inhalerIndicati ons:Moderate persistent asthma without complication Inhale 2 Puffs into the lungs every 4 to 6 (four to six) hours as needed for shortness of breath or wheezing 18 g 1 10/18/19 25 Active levothyroxine 137 mcg tabletIndicatio ns:Hypothyroidi sm, unspecified type Take 1 Tablet by mouth once daily. 90 Tablet 1 02/15/20 25 Active acetaminophen (TYLENOL) 500 mg tabletIndicatio ns:Acute midline thoracic back pain Take 2 Tablets by mouth every 6 (six) hours as needed for pain. 500 Tablet 02/28/20 25 Active tiZANidine (ZANAFLEX) 2 mg tabletIndicatio ns:Acute midline thoracic back pain Take 2 Tablets by mouth every 8 (eight) hours as needed for muscle spasms. 45 Tablet 02/28/20 25 Active omeprazole (PRILOSEC) [address] Mancera ons:Gastroesoph ageal reflux disease without esophagitis [place] 1 capsula por la boca cada manana antes del desayuno (Sustituido por Prilosec). 90 Capsule 1 02/28/20 25 Active ELIQUIS 5 mg tab TAKE ONE TABLET BY MOUTH TWICE DAILY 60 Tablet 2 07/03/20 25 Active ELIQUIS 5 mg tab Take 1 Tablet by mouth 2 (two) times daily. 60 Tablet 2 02/15/20 25 2024 Discontinued Active Problems Problem Noted Date Diagnosed Date Other specified anxiety disorder 01/26/2024 Vitamin D deficiency 11/02/2023 Irritable bowel syndrome 06/16/2022 Body mass index (BMI) of 45.0-49.9 in adult 03/18 Gastroesophageal reflux disease without esophagi tis 03/26/2019 UTI symptoms 03/26/2019 Obesity 10/18/2017 Hypothyroidism 07/15/2016 Acute pain of left shoulder 06/28/2016 Moderate persistent asthma 06/28/2016 NAFLD (nonalcoholic fatty liver disease) 016 Immunizations Immunization Administration Dates Next Due Flu, High Dose, 65y+, Fluzone High Dose 06/16/20 22 Flu, Preservative Free 10/18/2017 Influenza (FLUZONE), high-dose, trivalent, PF PNEUMOCOCCAL CONJUGATE PCV 13 10/18/2017 PNEUMOCOCCAL CONJUGATE PCV 20 (Prevnar 20) 02/27 TDAP 04/04/2019 ZOSTER VACCINE, RECOMBINANT (SHINGRIX) 2,05/13/2021 Family History Medical History Relation Name Comments Cancer Father Relation Name Status Comments Father Mother Social History Tobacco Use Types Packs/Day Years Used Date Smoking Tobacco: Never Smokeless Tobacco: Never Tobacco Cessation:Counseling Given: No Alcohol Use Standard Drinks/Week Comments No 0 (1 standard drink = 0.6 oz pur e alcohol) Social Connections Answer Date Recorded How often do you feel lonely or isolated from th ose around you? 1 07/17/2024 Financial Resource Strain Answer Date R ecorded Hard to pay for: Food 1 07/17/2024 Stress Answer Date Recorded Do you feel these kinds of stress these days? 1 07/17/2024 Physical Activity Answer Date Recorded Physical Activity 0 05/12/2019 Food Insecurity Answer Date Recorded Hard to pay for: Food 1 07/17/2024 Transportation Needs Answer Date Record ed Hard to pay for: Transportation 1 07/17/2024 Housing Stability Answer Date Recorded Hard to pay for: Rent/Mortgage payment 1 07/17/2024 Safety and Environment Answer Date Maurice rded Safety 1 02/28/2024 Utilities Answer Date Recorded Hard to pay for: Utilities 1 07/17 Employment Answer Date Recorded Stress 0 12/06/2021 Comments No Sex and Gender Information Value Date Recorded Sex Assigned at Female 10/18/2017 10:34 AM PST Legal Sex Female 7:24 AM PST Gender Identity Female 10/18/2017 10:34 AM PST Sexual Orientation Straight 10/18/2017 10 :34 AM PST Occupation Industry Job Start Date Job End Date unemployed Not on file Not on file Not on file Last Filed Vital Signs Vital Sign Reading Time Taken Comments Blood Pressure 120/72 07/17/2024 3:23 PM EDT Pulse 65 07/17/2024 3:23 PM EDT Temperature 36.6 C (97.9 F) 07/17/2024 3:23 PM EDT Respiratory Rate 18 07/17/2024 3:23 PM EDT Oxygen Saturation 96% 07/17/2024 3:23 PM EDT Inhaled Oxygen Concentration - - Weight 120.2 kg (265 lb) 02/27/2025 9:21 AM EDT Height 165.1 cm (5' 5 ) 07/17/2024 3:23 PM EDT Body Mass Index 44.1 07/17/2024 3:23 PM EDT Plan of Treatment Upcoming Encounters Date Type Department Care Team (Late st Contact Info) Description 08/27/2025 3:00 PM EST Office Visit [facility] [phone] [place] [phone] Maribel Han PA-C [phone] [place] [phone] Health Maintenance Due Date Last Done Comments Medicare Annual Wellness Visit 1974 CT Colonography 2001 FIT/gFOBT 2001 Fecal DNA 2001 Flexible Sigmoidoscopy 2001 TSH Monitoring 06/23/2023 06/23/2022, 09/19, 11/06/2019, Additional history exists Alcohol and Drug Screen 09/18/2024 07/17/20 24, 11/02/2023, 10/11/2021, Additional history exists Depression Annual Screen 09/18/2024 07/17/2024, 10/19 Falls Prevention 02/27/2025 02/28/2024 [id number] ( season) 2025 11/18/2021, 04/07/2021, 02/28/2021 Imm-Influenza (#1) 2025 07/17/2024, 0 06/16/2022, 10/18/2017 Hypertension Screening (#1) 07/17/2025 Bone Density Screening 11/22/2025 11/23/2023, 2023 Tobacco Screening 03/31/2026 03/31/2025 Breast Cancer Screening (Mammogram) 06/19/2026 06/19/2025, 11/23/2023, 07/15/2021 Diabetes Screening 08/19/2026 08/19/2023, 1 , 10/09/2020, Additional history exists Lipid Screening 11/27/2027 11/26/2024, 02/2022, 06/23/2022, Additional history exists Colonoscopy 01/22/2029 01/23/2024 Colorectal Cancer Screening 01/22/2029 Imm-DTaP/Tdap/Td (2 - Td or Tdap) 04/04/2029 019 Hepatitis C Screening Completed 10/09/2020 Imm-Zoster, Recombinant Completed 06/16/2022, 05/13 Imm-Pneumococcal 50+ Completed 02/28/2024, 10/18/19 18 Procedures Procedure Name Priority Date/Time Associated Diagnosis Comments REFERRAL FOR MAMMOGRAM Routine 3:00 AM EDT Breast cancer screening by mammogram REFERRAL FOR COLONOSCOPY Routine 01/23/2024 3:00 AM EDT Colon cancer screening REFERRAL FOR BONE DENSITY TESTING Routine 11/23/2023 3:00 AM EST Post-menopausal THYROID PANEL WITH TSH Routine 11:27 AM EDT Hypothyroidism, unspecified type COMPREHENSIVE METABOLIC PANEL Routine 06/23/2022 11:27 AM EDT Body mass index (BMI) of 45.0-49.9 in adult (HCC-CMS) Class 3 severe obesity due to excess calories without serious comorbidity with body mass index (BMI) of 45.0 to 49.9 in adult (HCC-CMS) LIPID PANEL Routine 06/23/2022 11:27 AM EDT Body mass index (BMI) of 45.0-49.9 in adult (HCC-CMS) Class 3 severe obesity due to excess calories without serious comorbidity with body mass index (BMI) of 45.0 to 49.9 in adult (HCC-CMS) HEPATITIS C ANTIBODY Routine 10/09/2020 10:25 AM EST Routine lab draw Need for hepatitis C screening test from Last 3 Months or Most Recently Relevant to Health Maintenance Results * REFERRAL FOR MAMMOGRAM (06/19/2025 3:00 AM EDT) 06/19/2025 3:00 AM EDT us Maribel Han PA-C IMG RFL MAMMO Final Result * REFERRAL FOR COLONOSCOPY (01/23/2024 3:00 AM EDT) 01/23/2024 3:00 AM EDT us Maribel Han PA-C REFERRAL Edited Resul t - Final * REFERRAL FOR BONE DENSITY TESTING (11/23/2023 3:00 AM EST) 11/23/2023 3:00 AM EST us Maribel Han PA-C IMG RFL DXA Edited Resul t - Final * THYROID PANEL WITH TSH (06/23/2022 11:27 AM EDT) Pathologist [facility] TSH 3.95 0.40 - 4.50 mIU/L [facility] T-3 [place]KE 25 22 - 35 % [facility] [place] Room T-4 (THYROXINE), TOTAL 8.9 5.1 - 11.9 mcg/dL [facility] [place] Room FREE T4 INDEX (T7) 2.2 1.4 - 3.8 [facility] [employer] [place] Room Blood Blood / Unknown 06/23/2022 1 1:27 AM EDT 06/23/2022 11:28 AM EDT Narrative [employer] - 06/27/2022 2:45 PM EDT FASTING:NO Estelitanikkoeloise Han PA-C LAB - BLOOD DRAW Final Resul t [employer] [address] [address], [facility] [address] [address] * (ABNORMAL) LIPID PANEL (06/23/2022 11:27 AM EDT) [facility] CHOLESTEROL, TOTAL 168 <200 mg/dL [facility] [employer] [facility] HDL CHOLESTEROL 45(L) > OR = 50 mg/dL [facility] [place] Room TRIGLYCERIDES 76 <150 mg/dL [facility] LDL-CHOLESTEROL 106(H) 99 mg/dL (calc) [facility] Comment: Reference range: <100 Desirable range <100 mg/dL for primary prevention; <70 mg/dL for patients with CHD or diabetic patients with > or = 2 CHD risk factors. LDL-C is now calculated using the June calculation, which is a validated novel method providing better accuracy than the Friedewald equation in the estimation of LDL-C. Karthikeyan DIOR et al. SANDOVAL. 2013;310(19): 1225-1666 (http://education.[employer]iders [employer]./faq/UKI730) CHOL/HDLC RATIO 3.7 <5.0 (calc) [facility] NON-HDL CHOLESTEROL 123 <130 mg/dL (calc) [facility] Comment: For patients with diabetes plus 1 major ASCVD risk factor, treating to a non-HDL-C goal of <100 mg/dL (LDL-C of <70 mg/dL) is considered a therapeutic option. Blood Blood / Unknown 06/23/2022 1 1:27 AM EDT 06/23/2022 11:28 AM EDT Narrative [facility] - 06/27/2022 2:45 PM EDT FASTING:NO Maribel Han PA-C LAB - BLOOD DRAW Final Resul t [facility] [address] [address], [facility] [address] [address] * COMPRE METAB PANEL (06/23/2022 11:27 AM EDT) GLUCOSE 105 65 - 139 mg/dL [facility] Comment: Non-fasting reference interval UREA NITROGEN (BUN) 19 7 - 25 mg/dL [facility] CREATININE (blood) 0.86 0.50 - 1.05 mg/dL [facility] EGFR 75 > OR = 60 mL/min/1 .73m2 [facility] Comment: The eGFR is based on the CKD-EPI 2020 equation. To calculate the new eGFR from a previous Creatinine or Cystatin C result, go to https://www.kidney.org/professionals/ kdoqi/gfr%5Fcalculator BUN/CREATININE RATIO NOT APPLICABLE 6 - 22 [facility] SODIUM 140 135 - 146 mmol/L [facility] POTASSIUM 4.4 3.5 - 5.3 mmol/L [facility] CHLORIDE 105 98 - 110 mmol/L [facility] CARBON DIOXIDE 29 20 - 32 mmol/L [facility] CALCIUM 9.5 8.6 - 10.4 mg/dL [facility] PROTEIN, TOTAL 7.1 6.1 - 8.1 g/dL [facility] ALBUMIN 4.1 3.6 - 5.1 g/dL [facility] GLOBULIN 3.0 1.9 - 3.7 g/dL (calc) [facility] ALBUMIN/GLOBUL IN RATIO 1.4 1.0 - 2.5 (calc) [facility] BILIRUBIN, TOTAL 0.4 0.2 - 1.2 mg/dL [facility] ALKALINE PHOSPHATASE 63 37 - 153 U/L [facility] AST 14 10 - 35 U/L [facility] ALT 15 6 - 29 U/L [facility] Blood Blood / Unknown 06/23/2022 1 1:27 AM EDT 06/23/2022 11:28 AM EDT Narrative [facility] - 06/27/2022 2:45 PM EDT FASTING:NO Maribel Han PA-C LAB - BLOOD DRAW Edited Resu lt - Final [facility] [address] [address], [facility] [address] [address] * HEPATITIS C ANTIBODY (10/09/2020 10:25 AM EST) HEPATITIS C VIRUS SCREEN NEGATIVE [facility] Blood Blood / Unknown 10/09/2020 1 0:25 AM EST 10/09/2020 11:57 AM EST [facility]ative [facility] - 10/09/2020 1:32 PM EST [employer], [place] [address] [employer] Spr[employer] Operator - Amaris Dennison MD PT ID [id number] ORD# [id number] us Maribel Han PA-C LAB - BLOOD DRAW Final Resul t [facility] [employer] [address], from Last 3 Months or Most Recently Relevant to Health Maintenance Insurance [employer] Care Teams Professor Of Finance Relationship Specialty Start Date End Date Maribel Han PA-C [address] [place] [address] PCP - General [facility] 10/08/20
[2025-07-28 19:31] VITALS: BP 147/88; PULSE 58; RESP 16; TEMP 36.6; O2SAT 98
== END 2025-07-28 19:32 | disposition home or self-care (01) ==
PROVIDERS: Physician Assistant Medical; Emergency Provider Emergency Medicine; PCP Physician Assistant Medical
DX: R10.11 Right upper quadrant pain (principal); K21.9 Gastro-esophageal reflux disease without esophagitis; K59.00 Constipation, unspecified; Z98.890 Other specified postprocedural states
CPT/HCPCS: 36415; 74177; 80053; 81001; 83690; 83735; 85025; 96374; 99284; 99285; J2470; Q9967

== ENCOUNTER → 2025-07-28 16:33 | Outpatient (BNV) | payer OTHER, SELFPAY | PROVIDERS: Emergency Provider Emergency Medicine; PCP Physician Assistant Medical; Visit Provider Radiology Diagnostic Radiology | DX: R10.13 Epigastric pain (principal); R10.11 Right upper quadrant pain; R91.1 Solitary pulmonary nodule; N32.89 Other specified disorders of bladder | CPT/HCPCS: 74177 ==